=== PATIENT | male | born 1980 | race Caucasian/White ===

== ENCOUNTER 2023-12-17 14:42 | Outpatient (REF) | payer BC, SELFPAY | END 2023-12-17 14:43 | disposition home or self-care (01) | LOC: HO.MANLDS 14:42 | PROVIDERS: Visit Provider Internal Medicine | DX: R53.83 Other fatigue (principal) | CPT/HCPCS: 36415; 84403 ==

== ENCOUNTER 2024-12-22 11:11 | Outpatient (REF) | payer BC, SELFPAY ==
[2024-12-22 13:28] LABS: MANUAL DIFF FLAG NO
[2024-12-22 13:32] LABS: Basophils Absolute Auto 0.1 X10*3/uL (0.0-0.2); Basophils Percent Auto 1.1 % (0-2); Eosinophils Absolute Auto 0.4 X10*3/uL (0.0-0.4); Eosinophils Percent Auto 6.6 % (0-4); Hematocrit 42.9 % (42.0-52.0); Imm Gran Abs Auto 0.03 X10*3/uL (0.00-0.03); Imm Gran Pct Auto 0.5 % (0.0-0.4); Lymphocytes Absolute Auto 1.6 X10*3/uL (1.2-4.9); Lymphocytes Percent Auto 28.1 % (20-40); Mean Corpuscular HGB Conc 32.6 g/dl (31.0-36.0); Mean Corpuscular Hemoglobin 30.2 pg (27.0-33.0); Mean Corpuscular Volume 92.5 fL (80.0-98.0); Mean Platelet Volume 11.1 fL (9.4-12.4); Monocytes Absolute Auto 0.6 X10*3/uL (0.1-1.2); Monocytes Percent Auto 11.3 % (2-11); Neutrophils Absolute Auto 2.9 x10*3/uL (2.0-8.3); Neutrophils Percent Auto 52.4 % (45-73); Platelet Count 190 X10*3/uL (160-400); Red Blood Count 4.64 X10*6/uL (4.60-5.80); Red Cell Distribution Width 13.2 % (11.0-16.0); White Blood Count 5.6 X10*3/uL (4.8-10.8)
[2024-12-22 14:21] LABS: Alanine Aminotransferase 49 U/L (0-40); Albumin Level 4.3 g/dL (3.5-5.0); Alkaline Phosphatase 58 U/L (39-117); Anion Gap 9 (12-20); Aspartate Amino Transferase 38 U/L (5-37); Bilirubin Total 0.7 mg/dL (0.0-1.0); Blood Urea Nitrogen 22 mg/dL (9-16); Calcium 8.9 mg/dL (8.4-10.2); Carbon Dioxide 25 mmol/L (22-29); Chloride 107 mmol/L (96-108); Cholesterol 200 mg/dL (<200); Estimated Glomerular Filt Rate > 60; Glucose Random 102 mg/dL (60-115); HDL Cholesterol 60 mg/dL (>40); LDL Cholesterol Calculated 130 mg/dL (<100); Potassium 4.2 mmol/L (3.3-5.1); Sodium 137 mmol/L (135-145); Total Protein 6.7 g/dL (6.5-8.0); Triglycerides 52 mg/dL (<150)
[2024-12-23 13:29] LABS: Free Prostate Spec Ag 0.3 ng/mL; Percent Free Prostate Spec Ag 43 % (calc) (>25); Prostate Specific Ag Total 0.7 ng/mL (< OR = 4.0)
[2024-12-27 16:28] LABS: Testosterone, Free 52.5 pg/mL (35.0-155.0); Testosterone, Total 395 ng/dL (250-1100)
== END 2024-12-22 11:12 | disposition home or self-care (01) ==
LOC: HO.MANLDS 11:11
PROVIDERS: Visit Provider Internal Medicine
DX: Z00.00 Encounter for general adult medical examination without abnormal findings (principal); R53.82 Chronic fatigue, unspecified
CPT/HCPCS: 36415; 80053; 80061; 84154; 84402; 84403; 85025

== ENCOUNTER 2025-04-02 10:38 | Outpatient (REF) | payer BC, SELFPAY ==
--- OUTSIDE RECORDS SUMMARY | 2025-04-02 12:14 | XMS_ITS | Encounter Summary ---
Author Organization [facility] Address [address] [place] [id number] Phone Care Team Providers Care Plant And Instrument Engineer Name Role Phone Ellis Blanchard DO Unavailable Ellis Blanchard DO Primary Care Provider [phone] Encounter Details Date Type Department Care Team (Latest Contact Info) Description 06/13/2020 Transcribe Orders Virtual Department [address] [place] [address] Monse Miner PA [address] [place] [address] [place] [address] Localized swelling, mass, or lump of right lower extremity (Primary Dx) Social History Tobacco Use Types Packs/Day Years Used Date Smoking Tobacco: Never Assessed Sex and Gender Information Value Date Recorded Sex Assigned at Not on file Legal Sex Male 9:20 PM EDT Gender Identity Not on file Sexual Orientation Not on file documented as of this encounter Plan of Treatment Not on file documented as of this encounter Results * US Lower Extremity Veins Duplex (Right) (06/21/2020 3:43 PM EST) Anatomical Region Laterality Modality Hip Right, Thigh Right, Knee Right, Leg Right, Ankle Right, Foot Right Ultrasound 06/21/2020 4:12 PM EST Impressions 06/21/2020 4:15 PM EST 1. No evidence of deep vein thrombosis. 2. 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 POS [id number] Narrative 06/21/2020 4:15 PM EST Comparison: None Combined real-time, color flow and Doppler evaluation of the deep venous system of the right leg shows readily compressible deep veins with a normal Doppler waveform and easily elicited augmentation from the groin through the trifurcation vessels into the mid calf. The patient identifies a painful lump in the medial mid thigh. At this site a completely thrombosed superficial varix is easily identified. No popliteal cyst is apparent. Procedure Note Chago Ureña MD - 06/21/2020 Comparison: None Combined real-time, color flow and Doppler evaluation of the deep venoussystem of the right leg shows readily compressible deep veins with anormal Doppler waveform and easily elicited augmentation from the grointhrough the trifurcation vessels into the mid calf. The patient identifies a painful lump in the medial mid thigh. At thissite a completely thrombosed superficial varix is easily identified. No popliteal cyst is apparent. IMPRESSION: 1. No evidence of deep vein thrombosis. 2. 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 POS [id number] us Monse KNIGHT CV US VASCULAR Final Resul t documented in this encounter Visit Diagnoses Diagnosis Localized swelling, mass, or lump of right lower extremity- Primary Localized swelling, mass, or lump of right lower extremity documented in this encounter Care Teams Plant And Instrument Engineer Relationship Specialty Start Date End Date Ellis Blanchard DO [address] [place] [address] [email or web address] PCP - General Internal Medicine 06/17/20 Ellis Blanchard DO [address] [place] [address] Insurance Assigned Provider 10/26/23 documented as of this encounter Additional Source Comments The information contained in this document represents components of the legal health record. It is not the complete legal health record.[facility]
--- OUTSIDE RECORDS SUMMARY | 2025-04-02 12:14 | XMS_ITS | Clinical Summary ---
Author Organization [facility] Address [address] [place] [address] Phone Care Team Providers Care Incinerator Plant General Supervisor Name Role Phone Ellis Blanchard Unavailable DenaeEllis finnegan DO Primary Care Provider [phone] Social History Tobacco Use Types Packs/Day Years Used Date Smoking Tobacco: Never Assessed Education Answer Date Recorded Are you interested in more education? Not on edmond e 11/16/2022 Are you concerned about learning? Not on file 11/16/2022 No 11/16/2022 No 11/16/2022 Digital Access Answer Date Recorded No 12/14/2022 No 12/14/2022 No 12/14/2022 Reliable internet access at home? Not on file 12/14/2022 Device with a working camera? Not on file Sex and Gender Information Value Date Recorded Sex Assigned at Not on file Legal Sex Male 9:20 PM EDT Gender Identity Not on file Sexual Orientation Not on file Last Filed Vital Signs Vital Sign Reading Time Taken Comments Blood Pressure 122/72 11/24/2010 1:39 AM EDT Pulse 72 11/24/2010 1:39 AM EDT Temperature 36.6 C (97.8 F) 11/24/2010 1:39 AM EDT Respiratory Rate - - Oxygen Saturation - - Inhaled Oxygen Concentration - - Weight 93 kg (205 lb) 11/24/2010 1:39 AM EDT Height - - Body Mass Index - - Plan of Treatment Health Maintenance Due Date Last Done Comments Adult Td,Tdap Booster 1981 LIPID PANEL 1981 DEPRESSION SCREENING 1993 SMOKING Hx and SMOKELESS TOB ACCO SCREENING 1994 HIV ONE-TIME SCREENING (18-6 5 YEARS) 11/24/1999 INFLUENZA VACCINE (#1) 2025 COVID-19 VACCINE ( - 2023-2 5 season) 2025 HEPATITIS C SCREENING Completed 11/13/2021 HEPATITIS A VACCINES Aged Out No long er eligible based on patient's age to complete this topic HIB VACCINES Aged Out No longer eligi ble based on patient's age to complete this topic MENINGOCOCCAL VACCINES (ACWY) Aged Out No longer eligible based on patient's age to complete this topic MENINGOCOCCAL VACCINES (B) Aged Out N o longer eligible based on patient's age to complete this topic PNEUMOCOCCAL VACCINES (0-49 years) Aged Out No longer eligible based on patient's age to complete this topic Medical Devices Not on file Insurance O POS [facility] POS HMO POS [place] [address] [place] [address] HMO POS Member Subscriber Plan / Payer (Ef fective 2016-Present) Name:Silviano Dietrich Relation to Subscriber:Self Name:Drisssaima Silviano Payer ID:[id number] (NAIC) Type:HMO Address: [place] [id number] O POS O POS HMO POS [facility] POS Care Teams Incinerator Plant General Supervisor Relationship Specialty Start Date End Date Ellis Blanchard DO [address] [place] [address] PCP - General Internal Medicine 06/17/20 Ellis Blanchard DO [address] [place] [address] Insurance Assigned Provider 10/26/23 Additional Source Comments The information contained in this document represents components of the legal health record. It is not the complete legal health record.[facility]
[2025-04-02 14:07] LABS: Alanine Aminotransferase 52 U/L (0-40); Albumin Level 4.5 g/dL (3.5-5.0); Alkaline Phosphatase 62 U/L (39-117); Anion Gap 10 (12-20); Aspartate Amino Transferase 32 U/L (5-37); Blood Urea Nitrogen 26 mg/dL (9-16); Calcium 8.9 mg/dL (8.4-10.2); Carbon Dioxide 25 mmol/L (22-29); Chloride 108 mmol/L (96-108); Estimated Glomerular Filt Rate > 60; Potassium 4.4 mmol/L (3.3-5.1); Sodium 139 mmol/L (135-145); Total Protein 6.9 g/dL (6.5-8.0)
[2025-04-07 16:19] LABS: Testosterone, Free 69.7 pg/mL (35.0-155.0)
== END 2025-04-02 10:39 | disposition home or self-care (01) ==
LOC: HO.MANLDS 10:38
PROVIDERS: Visit Provider Internal Medicine
DX: R53.83 Other fatigue (principal)
CPT/HCPCS: 36415; 80053; 84402; 84403